=== PATIENT | male | born 1985 | race Caucasian/White ===

== ENCOUNTER 2017-03-09 05:47 | Emergency (ER) | payer OTHER ==
[2017-03-09 06:13] VITALS: BMI 25.1
[2017-03-09] MEDS ORDERED: IBUPROFEN 400 MG TABLET (FP) PO ONE ×2 (06:26→06:29)
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
[2017-03-09 07:12] VITALS: BP 154/65; PULSE 61; TEMP 98.1
--- NOTE | 2017-03-09 08:35 | PDOC ---
History of Present Illness - General Chief Complaint: Pain Stated Complaint: right hand injury Time Seen by Provider: 03/09/17 06:16 - History of Present Illness Initial Comments: 03/09/17 08:18 Sign-out received from outgoing ER provider Elliott. Pt interviewed and examined. Awaiting hand x-ray. 03/09/17 08:53 X-ray suggestive of old fracture to 5th digit. Will discharge with pain medication and f/u with ortho. Advised patient to take meds as prescribed and f/u with orthopedics if symptoms persist past 2-3 days. Past History - Past Medical History Allergies/Adverse Reactions: Allergies Allergy/AdvReac Type Severity Reaction Status Date / Time No Known Allergies Allergy Verified 03/09/17 06:10 Home Medications: Ambulatory Orders Cephalexin Monohydrate [Keflex -] 500 mg PO BID #20 capsule 06/12/15 Sulfamethoxazole/Trimethoprim [Bactrim Ds -] 1 tab PO BID #20 tablet 06/12/15 Ibuprofen 600 mg PO Q6H PRN #20 tablet 03/09/17 - Psycho/Social/Smoking Cessation Hx Anxiety: No Suicidal Ideation: No Smoking History: Current every day smoker Have you smoked in the past 12 months: Yes Number of Cigarettes Smoked Daily: 20 If you are a former smoker, when did you quit?: DID NOT WANT BOOK Information on smoking cessation initiated: No 'Breaking Loose' booklet given: 06/12/15 Hx Alcohol Use: No Drug/Substance Use Hx: No Substance Use Type: None Review of Systems - Review of Systems Is the patient limited Belgian proficient: No *Physical Exam - Vital Signs Last Vital Signs Temp Pulse Resp BP Pulse Ox 98.1 F 61 15 154/65 100 03/09/17 07:11 03/09/17 07:11 03/09/17 07:11 03/09/17 07:11 03/09/17 07:11 ED Treatment Course - Medications Given in the ED: ED Medications Discontinued Medications Generic Name Dose Route Start Last Admin Trade Name Freq PRN Reason Stop Dose Admin Ibuprofen 800 mg 03/09/17 06:26 03/09/17 06:32 Motrin - PO 03/09/17 06:27 800 mg ONCE ONE Administration *DC/Admit/Observation/Transfer Diagnosis at time of Disposition: Hand injury Qualifiers: Encounter type: initial encounter Laterality: right Qualified Code(s): S69.91XA - Unspecified injury of right wrist, hand and finger(s), initial encounter - Discharge Dispostion Disposition: HOME Condition at time of disposition: Stable Admit: No - Prescriptions Prescriptions: Ibuprofen 600 mg PO Q6H PRN #20 tablet PRN Reason: Pain - Referrals Referrals: Gerard Carbone MD [Staff Physician] - - Patient Instructions Printed Discharge Instructions: How to Use a Sling, DI for Hand Injury Additional Instructions: FOLLOW UP WITH DR. CARBONE (ORTHOPEDIC) IF SYMPTOMS PERSIST. CALL TO SCHEDULE APPOINTMENT. MOTRIN OR TYLENOL FOR PAIN NEEDED. APPLY COLD COMPRESS TO AFFECTED AREA NEEDED. Print Language: ALBANIAN - Post Discharge Activity
== END 2017-03-09 09:18 | disposition home or self-care (01) ==
LOC: JER 05:47
DX: S69.81XA Other specified injuries of right wrist, hand and finger(s), initial encounter (principal); V03.00XA Pedestrian on foot injured in collision with car, pick-up truck or van in nontraffic accident, initial encounter; Y92.414 Local residential or business street as the place of occurrence of the external cause; Y93.89 Activity, other specified; Y99.8 Other external cause status
CPT/HCPCS: 73110-TC-RT; 73130-TC-RT; 99282-25

== ENCOUNTER 2017-06-26 14:08 | Emergency (ER) | payer SELFPAY ==
[2017-06-26 14:19] VITALS: BP 116/73; PULSE 62; TEMP 98.8; BMI 27.8
--- NOTE | 2017-06-26 15:42 | PDOC ---
History of Present Illness - General Chief Complaint: Abscess Boil Stated Complaint: ABSCESS BOIL Time Seen by Provider: 06/26/17 14:40 History Source: Patient Exam Limitations: No Limitations - History of Present Illness Initial Comments: 06/26/17 15:53 Patient is a 31 y/o male with no PMH who presents to the ED c/o a boil on his low back. He states that he had a cyst where the boil is. The cyst suddenly got bigger over the last two days. He admits to pain around the area. Denies fevers , chills, nausea, vomiting, weakness, and fatigue. Past History - Travel Traveled outside of the country in the last 30 days: Yes Close contact w/someone who was outside of country & ill: No - Past Medical History Allergies/Adverse Reactions: Allergies Allergy/AdvReac Type Severity Reaction Status Date / Time No Known Allergies Allergy Verified 06/26/17 14:16 Home Medications: Ambulatory Orders Clindamycin [Cleocin -] 300 mg PO BID #14 capsule 06/26/17 Other medical history: DENIES. - Psycho/Social/Smoking Cessation Hx Anxiety: No Suicidal Ideation: No Smoking History: Current every day smoker Have you smoked in the past 12 months: Yes Number of Cigarettes Smoked Daily: 20 If you are a former smoker, when did you quit?: DID NOT WANT BOOK Information on smoking cessation initiated: No 'Breaking Loose' booklet given: 06/12/15 Hx Alcohol Use: No Drug/Substance Use Hx: No Substance Use Type: None Review of Systems - Review of Systems Constitutional: No: Chills, Fever, Malaise, Weakness Integumentary: Yes: Other (abscess to Left lower back) *Physical Exam - Vital Signs Last Vital Signs Temp Pulse Resp BP Pulse Ox 98.8 F 62 18 116/73 99 06/26/17 14:16 06/26/17 14:16 06/26/17 14:16 06/26/17 14:16 06/26/17 14:16 - Physical Exam General Appearance: Yes: Nourished, Appropriately Dressed. No: Apparent Distress Integumentary: positive: Normal Color, Dry, Warm, Other ([id number] round abscess with induration above and laterally to the abscess.) Procedures - Incision and Drainage I&D Site: Left: Other (lower back) Betadine cleansed: Yes Anesthesia: 1% Lidocaine Volume(ml): 3 Blade Size: 11 Attempts: 1 Plain Packing: Yes Dressing: Yes Medical Decision Making - Medical Decision Making 06/26/17 16:25 31 y/o male with a low back abscess. Presents for drainage. The site was prepared under sterile condition and betadine cleansed. 3cc of 1% lidocaine was used around the site. A 1cm incision was made and a copious amount of pus was expressed with cyst wall. The area was then explored for loculations, and flushed with 20cc of normal saline. 1in plain packing was placed in the opening. Pt. was instructed to return in two days for a wound check and placed on Cleocin. A wound culture was obtained. Pt. understands all discharge instructions and all questions were answered. *DC/Admit/Observation/Transfer Diagnosis at time of Disposition: Abscess - Discharge Dispostion Disposition: HOME Condition at time of disposition: Improved Admit: No - Prescriptions Prescriptions: Clindamycin [Cleocin -] 300 mg PO BID #14 capsule - Patient Instructions Printed Discharge Instructions: DI for Incision and Drainage of a Skin Abscess Additional Instructions: You had an abscess drained today. You have packing in the opening. Leave the packing in until you return for a wound check. Come back in two days (Saturday). You may change the dressing over the incision site as needed with 4x4 gauze and tape. You were prescribed antibiotics. Take the medication as prescribed and take the full dose of medication even if you feel better. You may take Motrin as needed for pain. You may take 800mg three times a day, not to exceed 3,000mg a day. Return to the ED in two days for a wound check. Return sooner if you have worsening pain, fevers, chills, nausea, or vomiting.
== END 2017-06-26 15:48 | disposition home or self-care (01) ==
LOC: JERFT 14:08
PROC: 0J970ZZ Drainage of Back Subcutaneous Tissue and Fascia, Open Approach (ICD-10-PCS; principal; 2017-06-26)
DX: L02.212 Cutaneous abscess of back [any part, except buttock and flank] (principal)
CPT/HCPCS: 87070; 87205; 99281-25

== ENCOUNTER 2019-12-17 02:49 | Emergency (ER) | payer OTHER ==
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
[2019-12-17 02:56] VITALS: BP 140/82; PULSE 103; TEMP 98.2; BMI 28.7
[2019-12-17] MEDS ORDERED: AMOX TR/POT CLAV 875MG/125MG TABLETS (FP) PO ONE (03:08)
[2019-12-17] MEDS ORDERED: AMOX TR/POT CLAV 875MG/125MG TABLETS (FP) ONE (03:08)
== END 2019-12-17 03:28 | disposition home or self-care (01) ==
LOC: FER 02:49
DX: J01.00 Acute maxillary sinusitis, unspecified (principal); F17.210 Nicotine dependence, cigarettes, uncomplicated
CPT/HCPCS: 99283-25

== ENCOUNTER 2020-06-20 15:05 | Emergency (ER) | payer OTHER ==
--- NOTE | 2020-06-20 15:10 | PDOC ---
History of Present Illness - General Chief Complaint: Redness To Affected Area Stated Complaint: LEFT LOWER LEG WOUND, REDNESS Time Seen by Provider: 06/20/20 15:09 - History of Present Illness Initial Comments: HPI: 34yo M with PMH of eczema presenting with left leg infection. Patient states he noticed redness, warmth, swelling, and drainage of pus about four days ago. In fact, the infection has improved since yesterday, but patient wanted to get "it checked out." States he has dry skin but is unsure if this incited this infection. Denies recent trauma or picking at the area. Patient reports that the swelling had been as large as a "tennis ball" such that it was difficult to walk and the swelling has since lessened. Has been cleaning the wound daily with peroxide. Noticed yellow pus drain from the area. No history of poor wound healing or hyperglycemia. Denies fever or chills. PCP: None ROS: Constitutional: no fever, no chills HEENT: no throat pain, no dysphagia Cardiovascular: no chest pain, no palpitations Respiratory: no cough, no shortness of breath Gastrointestinal: no abdominal pain, no nausea Genitourinary: no dysuria, no hematuria Musculoskeletal: no myalgia, no arthralgia Skin: no rash, +redness Neurologic: no headache, no weakness Psych: no agitation, no anxiety PE: General: Awake, alert, and fully oriented, in no acute distress Head: No signs of trauma Eyes: EOMI, sclera anicteric ENT: Moist mucus membranes Neck: Normal ROM, supple Lungs: Lungs clear, Normal breath sounds Cardio: Regular rhythm, S1 and S2 present Abdomen: Soft, nontender. No guarding, no rebound, no masses Extremities: Normal range of motion, Distal pulses present Skin: Left mid anterior amos with area of redness, mildly warm and tender to palpation with no fluctuance appreciated, 1cm circular ulceration, no discharge expressed upon palpation Neurologic: Cranial nerves II through XII grossly intact. Normal speech ED Course/MDM: DDX including but not limited to cellulitis, abscess, inflammation, contact dermatitis Exam consistent with cellulitis; no fluctuance noted especially as infection is overlying the tibia, thus I&D is not indicated Antibiotics, topical and po 06/20/20 15:10 Dose of keflex here; Prescriptions sent to pharmacy Wound dressed with bacitracin and sterile gauze Return precautions Stable for discharge 06/20/20 16:09 Past History - Medical History Allergies/Adverse Reactions: Allergies Allergy/AdvReac Type Severity Reaction Status Date / Time No Known Allergies Allergy Verified 06/20/20 15:08 Home Medications: Ambulatory Orders Bacitracin - [Bacitracin Topical Ointment -] 1 applic TP BID #1 tube 06/20/20 Cephalexin [Keflex] 500 mg PO QID #20 capsule 06/20/20 COPD: No - Psycho-Social/Smoking History Smoking History: Current every day smoker Have you smoked in the past 12 months: Yes Number of Cigarettes Smoked Daily: 20 If you are a former smoker, when did you quit?: DID NOT WANT BOOK 'Breaking Loose' booklet given: 06/12/15 Discharge - Discharge Information Problems reviewed: Yes Clinical Impression/Diagnosis: Cellulitis Qualifiers: Site of cellulitis: extremity Site of cellulitis of extremity: lower extremity Laterality: left Qualified Code(s): L03.116 - Cellulitis of left lower limb Condition: Stable Disposition: HOME - Additional Discharge Information Prescriptions: Bacitracin - [Bacitracin Topical Ointment -] 1 applic TP BID #1 tube Cephalexin [Keflex] 500 mg PO QID #20 capsule - Follow up/Referral Referrals: [facility] [place] [facility] [place] Group] - Patient Discharge Instructions Patient Printed Discharge Instructions: DI for Cellulitis -- Adult Additional Instructions: You came to the emergency department for a skin infection. The wound was cleaned and dressed. You received a dose of antibiotics while you were here. Prescriptions sent to your pharmacy. Take/use as instructed. Apply antibiotic ointment daily like mupirocin, bacitracin, or neosporin to the wound. Follow-up with a primary care provider within 72 hours to discuss this ED visit and to further evaluate your symptoms. Your workup is not complete until you do so. You have been referred to the [facility] in case you do not have a primary care doctor. Call and make an appointment at the number provided. RETURN to the Emergency Department if there are signs of infection: worsening redness or hardness around the wound, pain or tenderness, a red streak, yellow or green discharge oozing from the wound, fever or chills. - Post Discharge Activity
[2020-06-20 15:15] VITALS: BP 132/87; PULSE 94; TEMP 98; BMI 25.1
--- NOTE | 2020-06-20 15:38 | PDOC ---
Attending Attestation - Resident Resident Name: Taylor Singletonth - ED Attending Attestation I have performed the following: I have examined & evaluated the patient, The case was reviewed & discussed with the resident, I agree w/resident's findings & plan, Exceptions are as noted - HPI HPI: 06/20/20 16:19 34y M hx of augie presents with wound on LLE. Pt noticed a mild redness/dry skin on his L amos several days ago, he rubbed it to get it off, and saw there was increased redness/swelling/pain. the past 1-2 days, it swelled to a tennis ball size and started draining pus, he kept a gauze with hydrogen peroxide over it and it has improved but came for evaluation as he was concerned it was now an oepn wound. notse pain and swelling has improved substntially. 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 - Physicial Exam PE: 06/20/20 16:23 exam: genearl: no acute distress ext: LLE: amos noted for area of ertyhema without significant tenderness/warmth, in the center, there is an open non draining wound without any pus, appears dry with rolled borders, mildly tender to palpation, no fluctuance/induration. no other erythema/tracking noted on LE. - Medical Decision Making 06/20/20 16:23 suspect celluitis, sp sponatneously drainage of bacess, no systemic complaints will tx with abx will refer to PMD For fu/reasessement return precautions were discussed Discharge - Discharge Information Problems reviewed: Yes Clinical Impression/Diagnosis: Cellulitis Qualifiers: Site of cellulitis: extremity Site of cellulitis of extremity: lower extremity Laterality: left Qualified Code(s): L03.116 - Cellulitis of left lower limb Condition: Stable Disposition: HOME - Additional Discharge Information Prescriptions: Bacitracin - [Bacitracin Topical Ointment -] 1 applic TP BID #1 tube Cephalexin [Keflex] 500 mg PO QID #20 capsule - Follow up/Referral Referrals: [facility] [place] [facility] [place] [Provider Group] - Patient Discharge Instructions Patient Printed Discharge Instructions: DI for Cellulitis -- Adult Additional Instructions: You came to the emergency department for a skin infection. The wound was cleaned and dressed. You received a dose of antibiotics while you were here. Prescriptions sent to your pharmacy. Take/use as instructed. Apply antibiotic ointment daily like mupirocin, bacitracin, or neosporin to the wound. Follow-up with a primary care provider within 72 hours to discuss this ED visit and to further evaluate your symptoms. Your workup is not complete until you do so. You have been referred to the [facility] in case you do not have a primary care doctor. Call and make an appointment at the number provided. RETURN to the Emergency Department if there are signs of infection: worsening redness or hardness around the wound, pain or tenderness, a red streak, yellow or green discharge oozing from the wound, fever or chills. - Post Discharge Activity
[2020-06-20] MEDS ORDERED: BACITRACIN 15 GM TUBE TOPICAL OINTMENT TP ONE (16:04)
[2020-06-20] MEDS ORDERED: CEPHALEXIN MONOHYDRATE 500 MG CAPSULE (UD) PO ONE (16:07)
[2020-06-20] MEDS ORDERED: CEPHALEXIN MONOHYDRATE 500 MG CAPSULE (UD) ONE (16:21)
== END 2020-06-20 16:33 | disposition home or self-care (01) ==
LOC: FER 15:05
DX: L03.116 Cellulitis of left lower limb (principal)
CPT/HCPCS: 99283-25

== ENCOUNTER 2020-12-01 18:45 | Emergency (ER) | payer OTHER ==
[2020-12-01 18:52] VITALS: BP 117/74; PULSE 89; TEMP 99; BMI 26.4
== END 2020-12-01 20:47 | disposition home or self-care (01) ==
LOC: FER 18:45
DX: K08.89 Other specified disorders of teeth and supporting structures (principal); N39.0 Urinary tract infection, site not specified
CPT/HCPCS: 81003; 87086; 99283-25